=== PATIENT | female | born 1950 | race Caucasian/White ===

== ENCOUNTER 2020-01-02 17:40 | Emergency (ER) | payer MEDICARE ==
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
[2020-01-02] MEDS ORDERED: Lactated Ringers 1,000 ML IV ONE (18:41)
[2020-01-02] MEDS ORDERED: Iopamidol 612 MG/ML 100 ML Bottle IVPUSH ONE (18:51)
[2020-01-02] MEDS: Sodium Chloride 0.9% 10 ML Syringe FLUSH PRN ×2 (18:53→19:21)
[2020-01-02] MEDS ORDERED: Sodium Chloride 0.9% 45 ML IV SCH (19:00)
--- NOTE | 2020-01-02 19:41 | CT ---
CT cervical spine Technique: Multiple axial sections through the cervical spine were obtained from above C1 inferiorly to the top of T4. Reconstructed coronal and sagittal images were obtained. Comparison: No prior cervical spine imaging is available. Findings: Severe disc space narrowing of C5-6 and C6-7. Anterior disc space narrowing is noted at C3-4 and C4-5 as well as C7-T1. Abnormal cervical curvature is seen which is felt to be degenerative in etiology. Diffuse degenerative apophyseal change is noted. Anterior osteophytes are seen which are most prominent at C5-6 and C6-7. Slight posterior osteophytes at C5-6 and C6-7. Mild spondylolisthesis is noted at C3-4 due to degenerative apophyseal change. Degenerative uncovertebral change is also noted most prominent at C5-6 and C6-7. Mild scoliosis is also seen. Moderate left-sided neural foraminal stenosis is noted at C3-4. Mild right-sided neural foraminal stenosis is noted at C6-7. Other neural foramina are felt to be fairly well patent. No fracture is identified. Impression: 1. Diffuse degenerative change as noted above. 2. Nothing acute is appreciated on CT study of the cervical spine. Diagnostic code #2 This report was dictated in MDT
--- NOTE | 2020-01-02 19:42 | CT ---
Head CT Technique: Multiple axial sections through the brain were obtained. Intravenous contrast was not utilized. Comparison: No previous intracranial imaging is available. Findings: Ventricles along with basal cisterns and sulci over the convexities appear within normal limits for the patient's age. No abnormal parenchymal densities are seen. No evidence of intracranial hemorrhage. No midline shift or mass-effect is seen. Bone window settings were reviewed which show no acute calvarial finding. Visualized paranasal sinuses and mastoid sinuses show nothing acute. Impression: 1. Nothing acute is appreciated on noncontrast head CT exam. Diagnostic code #1 This report was dictated in MDT
--- NOTE | 2020-01-02 19:53 | CT ---
CT chest Technique: Multiple axial sections through the chest were obtained. Intravenous contrast was utilized. Findings: Incidental azygous lobe is seen. Aorta shows no aneurysm. No mediastinal adenopathy is seen. Hilar regions are unremarkable. No pericardial effusion is seen. Lungs show no acute parenchymal change. No pulmonary contusion is seen. No pleural effusions or pneumothorax is seen. Bone window settings were reviewed. Mild scoliosis is seen. No acute osseous finding is appreciated. Impression: 1. Nothing acute is appreciated on CT study of the chest. Diagnostic code #2 This report was dictated in MDT CT abdomen and pelvis Technique: Multiple axial sections were obtained from above the dome of the diaphragm inferiorly through the pubic symphysis. Intravenous contrast was utilized. No oral contrast has been given. Findings: Small low density finding is noted within the left lobe of the liver measuring 9 mm. This is nonspecific for small cyst or solid finding. This is most likely incidental as no other liver lesions are appreciated. Small hiatal hernia is seen. Splenic laceration is seen measuring about 1.5 cm in size. Small intrasplenic hematoma is seen. Subcapsular hematoma is seen measuring approximately 3.1 cm in thickness. This subcapsular hematoma projects over 75 percent of the length of the spleen. There is mixed density within the splenic hematoma suggesting some active hemorrhage. Kidneys show symmetric contrast enhancement with no hydronephrosis or mass. Pancreas appears normal. Aorta shows no aneurysm. No retroperitoneal adenopathy or mesenteric abnormalities are seen. Appendix is seen which is normal. No pelvic mass or adenopathy is seen. There is a mild amount of free fluid seen within the pelvis which is felt compatible with blood. Bone window settings show degenerative change within the spine. Ununited transverse process is noted on the right side at L3 which is old. No acute osseous finding is appreciated. Impression: 1. Splenic injury as noted above with laceration, small intrasplenic hematoma and subcapsular hematoma. Mixed density within the subcapsular hematoma is noted suggesting active hemorrhage. These findings correlate to grade 4 injury. 2. Mild amount of blood within the pelvis. 3. No other acute finding is seen on CT study of the abdomen and pelvis. Diagnostic code #5 This report was dictated in MDT
--- NOTE | 2020-01-02 20:58 | CR ---
Left hand: 3 views left hand were obtained. Comparison: No previous study. Prominent degenerative change is noted within the CMC joint of the thumb. Joint space narrowing is also noted about the distal navicular bone. Joint space narrowing is scattered within the DIP and PIP joints. Fracture is present within the distal fifth metacarpal at the base of the metacarpal head. Alignment is anatomic. No additional fracture or other bony abnormality is seen. Impression: 1. Degenerative change. 2. Fracture involving the distal left fifth metacarpal. Diagnostic code #3 This report was dictated in MDT
[2020-01-02] MEDS ORDERED: Acetaminophen 325 MG Tab PO ONE (22:26)
[2020-01-02] MEDS ORDERED: Dextrose 5%-0.9% NaCl 1,000 ML IV SCH (23:45)
== END 2020-01-03 04:57 ==
LOC: JD.ED 17:40
DX: S62.367A Nondisplaced fracture of neck of fifth metacarpal bone, left hand, initial encounter for closed fracture (principal); S36.039A Unspecified laceration of spleen, initial encounter; S00.83XA Contusion of other part of head, initial encounter; S60.222A Contusion of left hand, initial encounter; S40.812A Abrasion of left upper arm, initial encounter; S00.81XA Abrasion of other part of head, initial encounter; S80.812A Abrasion, left lower leg, initial encounter; I48.91 Unspecified atrial fibrillation; Z20.828 Contact with and (suspected) exposure to other viral communicable diseases; V80.010A Animal-rider injured by fall from or being thrown from horse in noncollision accident, initial encounter
CPT/HCPCS: 29125; 36415; 70450; 71260; 72125; 73130; 74177; 80053; 83735; 84484; 85025; 85610; 85730; 86850; 86900; 86901; 93005; 96360; 96361; 99285; A9270; J7042; J7050; J7120; Q9967; U0002; 93010